=== PATIENT | female | born 1930 | race Caucasian/White ===

== ENCOUNTER 2016-08-22 15:32 | Outpatient (CLI) | payer MEDICARE, OTHER ==
--- NOTE | 2016-08-23 14:59 | XRAY Report ---
EXAM: LUMBOSACRAL SPINE RADIOGRAPHY EXAM DATE: 08/22/2016 03:52 PM. CLINICAL HISTORY: LOW BACK PAIN. COMPARISONS: None. TECHNIQUE: Single frontal view. FINDINGS: Study is limited secondary to frontal view available for interpretation. Alignment: There is mild dextroscoliosis. Bones: Five oeb-[id number] lumbar vertebral bodies are present. No fractures or bone lesions. 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 Sacroiliac Joints: Unremarkable. Soft Tissues: Post cholecystectomy changes noted. The visualized bowel gas pattern is normal. IMPRESSION: Limited evaluation secondary to frontal view available for interpretation. Moderate degen erative changes without obvious acute fracture. Mild dextroscoliosis. [facility] Referring Provider Line: [phone] SITE ID: [id number]
== END 2016-08-22 15:33 | disposition home or self-care (01) ==
LOC: DI.S 15:32
PROVIDERS: ATTEND Nurse Practitioner Family
DX: M41.87 Other forms of scoliosis, lumbosacral region (principal); M51.37 Other intervertebral disc degeneration, lumbosacral region
CPT/HCPCS: 72100

== ENCOUNTER 2018-04-13 15:16 | Outpatient (CLI) | payer MEDICARE, OTHER ==
--- NOTE | 2018-04-14 10:10 | CT Report ---
Reason: ENCOUNTER FOR OTHER SCREEN MUSCULOSKELETAL Procedure Date: 04/13/2018 Accession Number: [id number] / [id number] Procedure: CT - Pelvis W/O CPT Code: FULL RESULT: EXAM: CT BONY PELVIS WITHOUT CONTRAST EXAM DATE: 04/13/2018 03:58 PM. CLINICAL HISTORY: ENCOUNTER FOR OTHER SCREEN MUSCULOSKELETAL. Pelvic pain. COMPARISON: None. TECHNIQUE: Thin-section axial images were acquired of the pelvis without contrast. Post-processing: Coronal and sagittal reformats. Other: None. In accordance with CT protocol optimization, one or more of the following dose reduction techniques were utilized for this exam: automated exposure control, adjustment of mA and/or KV based on patient size, or use of iterative reconstructive technique. FINDINGS: Bones: No fracture or bone lesion. Sacroiliac Joints: No widening, erosions, or sclerosis. Age-related narrowing of the SI joints. Symphysis Pubis: Unremarkable. Right Hip: The joint space is narrow. No calcified loose bodies. Left Hip: The joint space is narrow. No calcified loose bodies. Musculature: Normal. No fatty atrophy. Pelvic Cavity: The visualized bowel, bladder, and reproductive organs are unremarkable on this noncontrast exam. There appears to have been a surgery at the proximal rectum. No stenosis. Other: No lymphadenopathy. No free air or free fluid. The other visualized soft tissues are unremarkable. IMPRESSION: 1. No fractures. No erosive or destructive changes. Age-related narrowing of the hips and the SI joints. [facility]
== END 2018-04-13 15:17 | disposition home or self-care (01) ==
LOC: DI 15:16
PROVIDERS: ATTEND Internal Medicine
DX: Z13.828 Encounter for screening for other musculoskeletal disorder (principal)
CPT/HCPCS: 72192

== ENCOUNTER 2018-08-02 17:03 | Outpatient (CLI) | payer MEDICARE, OTHER ==
--- NOTE | 2018-08-03 02:04 | Ultrasound Report ---
Reason: UNSPECIFIED ABDOMINAL PAIN Procedure Date: 08/02/2018 Accession Number: [id number] / [id number] Procedure: US - Abdomen Complete CPT Code: FULL RESULT: EXAM: ABDOMEN ULTRASOUND EXAM DATE: 08/02/2018 05:11 PM. CLINICAL HISTORY: Epigastric pain COMPARISON: None. TECHNIQUE: Real-time scanning was performed with static images obtained. FINDINGS: Liver: Normal in size and echotexture. 13.1 cm. Main portal vein flow: Hepatopetal. Gallbladder: Surgically absent. Biliary System: Common bile duct measures 3 mm. No intrahepatic or extrahepatic ductal dilatation. Pancreas: Visualized portion is unremarkable. Kidneys: Right: 9.5 cm longitudinally. 7 mm cortical cyst. No hydronephrosis or solid renal lesion. Left: 10.3 cm longitudinally. 14 mm cortical cyst. No hydronephrosis or solid renal lesion. Spleen: 7.8 cm. Normal in size and echotexture. Aorta and Inferior Vena Cava: Unremarkable. Other: None. IMPRESSION: Postoperative changes of cholecystectomy. No biliary dilatation. No evident etiology for patient's epigastric pain. [facility]
== END 2018-08-02 17:04 | disposition home or self-care (01) ==
LOC: DI 17:03
PROVIDERS: ATTEND Internal Medicine
DX: R10.9 Unspecified abdominal pain (principal); Z90.49 Acquired absence of other specified parts of digestive tract
CPT/HCPCS: 76700